=== PATIENT | male | born 1985 | race Caucasian/White ===

== ENCOUNTER 2019-10-24 01:52 | Emergency (ER) | payer OTHER, SELFPAY ==
[2019-10-24 01:55] VITALS: BP 133/85; PULSE 110; RESP 18; TEMP 37; O2SAT 99
--- NOTE | 2019-10-24 02:39 | ED.LOWEXIN ---
HPI - Extremity Injury (Lower) General Chief Complaint: Extremity Injury, Lower Stated Complaint: ANKLE LAC Time Seen by Provider: 10/24/19 02:36 History of Present Illness HPI Narrative: Patient comes to the ED with a laceration on his left lower leg. He is sound asleep and intoxicated. Was difficult to wake him up. He was not even sure where the cut was. According to the nurses notes he was drinking at a bar. And got home and found the blood on the floor. He denies medical problems. Denies previous surgeries. Drinks alcohol. He said his last tetanus was 2 years ago. Related Data Home Medications Medication Instructions Recorded Confirmed No Home Medications 10/24/19 10/24/19 Allergies Allergy/AdvReac Type Severity Reaction Status Date / Time No Known Allergies Allergy Verified 10/24/19 02:02 Review of Systems Review of Systems: Narrative: Unable to get a full review of systems due to the patient being so sleepy and intoxicated. All systems reviewed & are unremarkable except as noted in HPI and below PMFSH Past Medical History Medical History (Updated 10/24/19 @ 02:45 by Sierra Andrew MD) Alcohol blood level excessive Leg laceration Social History Social History (Updated 10/24/19 @ 02:43 by Sierra Andrew MD) Alcohol intake: current Exam Narrative: Exam Narrative: GENERAL: Well-appearing, well-nourished, and in no acute distress. Many tattoos HEAD: Normocephalic, atraumatic. EYES: PERRLA and EOMI. ENT: Nares clear, no rhinorrhea or epistaxis. Mucous membranes moist. NECK: Supple. CHEST: Clear to auscultation. No respiratory distress. HEART: Regular rate and rhythm. No murmur heard. Normal peripheral pulses. ABDOMEN: Soft, nontender, nondistended, normal active bowel sounds. EXTREMITIES: Normal range of motion. No edema. 2 inch laceration on the left lower leg, no longer bleeding. SKIN: Warm, dry, no rash. NEURO: No focal deficits. Alert and oriented x3. PSYCH: Normal mood and affect. Course Vital Signs Vital signs: Vital Signs Temperature 98.6 F 10/24/19 01:55 Pulse Rate 110 H 10/24/19 01:55 Respiratory Rate 18 10/24/19 01:55 Blood Pressure 133/85 10/24/19 01:55 Pulse Oximetry 99 10/24/19 01:55 Temperature 98.6 F 10/24/19 01:55 Pulse Rate 110 H 10/24/19 01:55 Respiratory Rate 18 10/24/19 01:55 Blood Pressure 133/85 10/24/19 01:55 Pulse Oximetry 99 10/24/19 01:55 Procedures Laceration Laceration 1: Date: 10/24/19 Time: 02:44 Site: lower extremity Side (If applicable): left Size (cm): 4 Description: linear Depth: simple, single layer Local Anesthetic: none Pre-repair: wound explored and irrigated ====== Skin Level ====== Skin layer closed with: natan (7) ====== Subcutaneous Layer ====== ====== Muscle Layer ====== ====== Tendon Layer ====== Dressing: Gauze Discharge Plan Discharge Clinical Impression: Leg laceration Qualifiers: Encounter type: initial encounter Laterality: left Qualified Code(s): S81.812A - Laceration without foreign body, left lower leg, initial encounter Patient Disposition: Home, Self-Care Condition: Improved Instructions: Staple Care (ED) Additional Instructions: Natan out in 7 days Prescriptions: No Action No Home Medications RF: 0 Follow-up/Referrals: Ethan Emery MD [Physician] - (On schedule new patient appointment to have your natan taken out in 1 week) Time of Disposition: 02:45
[2019-10-24 04:29] VITALS: BP 104/52; PULSE 70; RESP 16; O2SAT 97
== END 2019-10-24 04:32 | disposition home or self-care (01) ==
PROVIDERS: Emergency Provider Emergency Medicine
DX: S81.812A Laceration without foreign body, left lower leg, initial encounter (principal); X58.XXXA Exposure to other specified factors, initial encounter
CPT/HCPCS: 12002; 99282